=== PATIENT | female | born 1995 | race Two or more races ===

== ENCOUNTER 2019-10-27 20:07 | Inpatient (IN) | payer OTHER ==
[~2019-10-27] VITALS: Ht 162.6 cm; Wt 2.7 kg
[~2019-10-27 20:07] MED LIST: PRENATAL PO
== END 2019-10-29 16:57 | disposition home or self-care (01) | DRG 785 ==
LOC: LDR 20:07 → OB/GYN 23:42
PROVIDERS: ADMIT Obstetrics & Gynecology
PROC: 0UL70ZZ Occlusion of Bilateral Fallopian Tubes, Open Approach (ICD-10-PCS; 2019-10-27)
PROC: 4A1HXCZ Monitoring of Products of Conception, Cardiac Rate, External Approach (ICD-10-PCS; 2019-10-27)
PROC: 10D00Z1 Extraction of Products of Conception, Low, Open Approach (ICD-10-PCS; principal; 2019-10-27 20:00)
DX: O82 Encounter for cesarean delivery without indication (principal); Z3A.38 38 weeks gestation of pregnancy; Z37.0 Single live birth; Z30.2 Encounter for sterilization